=== PATIENT | female | born 1950 ===

== ENCOUNTER 2020-03-09 16:00 | Outpatient (CLI) | payer MEDICARE, OTHER ==
[2020-03-09 16:35] LABS: Bilirubin Negative (Negative); Blood, Urine Trace (Negative); Glucose, Urine (Dipstick) 500 mg/dL (Negative); Leukocyte Small (Negative); Nitrite Negative (Negative); Protein, Urine (Dipstick) 30 mg/dL (Neg-Trace); Urobilinogen 0.2 mg/dL (Less than 2)
[2020-03-09 16:43] LABS: Anion Gap 16 mmol/L (10-20); BUN (Urea Nitrogen) 8 mg/dL (9.8-20.1); Calc. Creatinine Clearance 0 mL/min (70-130); Calcium 9.5 mg/dL (7.8-10.44); Carbon Dioxide 25 mmol/L (23-31); Chloride 104 mmol/L (98-107); Estimated GFR-MDRD 71; Glucose 135 mg/dL (80-115); Sodium 141 mmol/L (136-145)
[2020-03-09 16:45] LABS: Bacteria/HPF 2+ HPF (None Seen); Clarity Hazy (Clear); RBC/HPF 0-3 HPF (0-3); Transitional Epithelial 0-3 HPF (None Seen)
[2020-03-09 22:09] LABS: Creatinine, Urine 80.3 mg/dL (47-110)
== END 2020-03-09 16:01 | disposition home or self-care (01) ==
LOC: MADLABSP 16:00
PROVIDERS: ATTEND Internal Medicine Nephrology
DX: E11.8 Type 2 diabetes mellitus with unspecified complications (principal); R80.9 Proteinuria, unspecified
CPT/HCPCS: 80048; 81001; 82570; 84156